=== PATIENT | male | born 1945 | race Two or more races ===

== ENCOUNTER 2022-06-14 14:26 | Inpatient (IN) | payer OTHER ==
[~2022-06-14] VITALS: Ht 182.9 cm; Wt 82.1 kg
--- NOTE | 2022-06-14 14:45 | NUR ---
[id number]IVATE HOME FOR AMS SINCE 399, LKWT "YESTERDAY". PLACED IN BED, NOT RESPONDING TO VERBAL AND PAINFUL STIMULI, BREATHING EVEN AND UNLABORED SATURATING AT 96%RA.
--- NOTE | 2022-06-14 14:58 | NUR ---
DR HAMMONDS AT BEDSIDE
--- NOTE | 2022-06-14 15:00 | NUR ---
attempted IV - multiple times failed called the nursing supervisor brew [facility] for PICC line
[2022-06-14 15:16] LABS: ABG BASE EXCESS -9.1 mmol/L; ABG PCO2 50.8 mmHg (35.0-45.0); ABG PH 7.188 (7.350-7.450); ABG PO2 81.2 mmHg (75.0-100.0); COHb 0.5 % (0.5-1.5); MetHb 0.3 % (0.0-1.5); O2Hb 91.3 % (94.0-97.0); SITE, ABG Right Radial; VENT MODE, BG 3LNC
[2022-06-14] MEDS ORDERED: MULT-447 PO (15:18)
[2022-06-14] MEDS ORDERED: METO50TA16 PO (15:18)
[2022-06-14] MEDS ORDERED: HYDR100T27 PO (15:18)
[2022-06-14] MEDS ORDERED: POLY17PO4 PO (15:18)
[2022-06-14] MEDS ORDERED: LOSA50TA39 PO (15:18)
[2022-06-14] MEDS ORDERED: ESCI10TA PO (15:18)
[2022-06-14] MEDS ORDERED: LAMO200T10 PO (15:18)
--- NOTE | 2022-06-14 15:28 | NUR ---
PATIENT TAKEN TO CT VIA STEVEN
--- NOTE | 2022-06-14 15:41 | NUR ---
rapid swab done and sent to lab
--- NOTE | 2022-06-14 16:07 | NUR ---
[facility] CALLED, AWAITING RETURN MESSAGE.
--- NOTE | 2022-06-14 16:35 | NUR ---
CENTRAL LINE RIGHT FEMORAL INSERTED BY DR HAMMONDS, BLOODS DRAWN AND URINE SAMPLE SENT TO LAB.
--- NOTE | 2022-06-14 16:50 | NUR ---
SWAB FOR COVID19 SENT TO LAB
[2022-06-14 17:04] LABS: BASOPHILS % (AUTO) 0.1 % (0.0-2.0); HEMATOCRIT 28 % (39-51); HEMOGLOBIN 9.2 g/dL (13.5-17.5); LYMPHOCYTES # (AUTO) 1.4 K/uL (0.8-4.8); LYMPHOCYTES % (AUTO) 9.9 % (20.0-44.0); MEAN CORPUSCULAR HGB CONC 33 g/dl (31.0-36.0); MEAN CORPUSCULAR VOLUME 94 fL (80-96); MONOCYTES # (AUTO) 1.5 K/uL (0.1-1.30); MONOCYTES % (AUTO) 10.2 % (2.0-12.0); NEUTROPHILS # (AUTO) 11.4 K/uL (1.8-8.9); NEUTROPHILS % (AUTO) 79.8 % (43.0-81.0); PLATELET COUNT (AUTO) 268 K/uL (150-450); WHITE BLOOD COUNT (AUTO) 14.3 K/uL (4.3-11.0)
[2022-06-14 17:18] LABS: SERUM AMMONIA 7 umol/L (11-32)
[2022-06-14 17:24] LABS: ALANINE AMINOTRANSFERASE 19 U/L (12-78); ALBUMIN 3.5 g/dL (3.4-5.0); ALKALINE PHOSPHATASE 105 U/L (46-116); ASPARTATE AMINOTRANSFERASE 42 U/L (15-37); BILIRUBIN,DIRECT 0.1 mg/dL (0.0-0.2); BILIRUBIN,TOTAL 0.4 mg/dL (0.2-1.0); CALCIUM, SERUM 7.1 mg/dL (8.5-10.1); CARBON DIOXIDE 23 mmol/L (21-32); CHLORIDE 93 mmol/L (98-107); GLUCOSE 95 mg/dL (74-106); SODIUM SERUM 138 mmol/L (136-145)
[2022-06-14 17:30] LABS: THYROID STIMULATING HORMONE 0.644 uIU/mL (0.358-3.74)
[2022-06-14 17:35] LABS: POTASSIUM 6.2 mmol/L (3.5-5.1)
--- NOTE | 2022-06-14 17:35 | NUR ---
BUN 82 , crea 10.4 , made aware
[2022-06-14 17:36] LABS: CREATININE 10.3 mg/dL (0.6-1.3); UREA NITROGEN, BLOOD 84 mg/dL (7-18)
--- NOTE | 2022-06-14 17:42 | NUR ---
CALLED [facility], DR KENNY MESSAGE LEFT TO COME TO ER
[2022-06-14 17:49] LABS: BILIRUBIN,URINE 1+ (NEGATIVE); COLOR,URINE YELLOW (YELLOW); LEUKOCYTE ESTERASE ,URINE NEGATIVE (NEGATIVE); NITRITE, URINE NEGATIVE (NEGATIVE); PROTEIN,URINE 2+ mg/dl (NEGATIVE); UGLUCOSE NEGATIVE (NEGATIVE); UROBILINOGEN,URINE 0.2 EU/dL (0.2)
[2022-06-14 17:57] LABS: BACTERIA,URINE None seen /HPF (None Seen); SQUAMOUS EPITHELIAL CELL,UR 0-2 /HPF (None Seen); WBC,URINE 0-2 /HPF (0-3)
[2022-06-14] MEDS ORDERED: DEXTROSE 50%-WATER 50 ML DISP.SYRIN IV ONE (18:00)
[2022-06-14] MEDS ORDERED: CALCIUM CHLORIDE 1,000 MG/10 ML DISP.SYRIN IV ONE (18:00)
[2022-06-14] MEDS ORDERED: INSULIN REGULAR, HUMAN 100 UNIT/ML 10 ML VIAL IV ONE (18:00)
[2022-06-14] MEDS ORDERED: SODIUM BICARBONATE SYR 50 MEQ/50 ML DISP.SYRIN IV ONE (18:00)
[2022-06-14] MEDS ORDERED: SODIUM BICARBONATE SYR 50 MEQ/50 ML DISP.SYRIN ONE (18:04)
[2022-06-14] MEDS ORDERED: DEXTROSE 50%-WATER 50 ML DISP.SYRIN ONE (18:05)
[2022-06-14] MEDS ORDERED: INSULIN REGULAR, HUMAN 100 UNIT/ML 10 ML VIAL ONE (18:05)
[2022-06-14] MEDS ORDERED: CALCIUM CHLORIDE 1,000 MG/10 ML DISP.SYRIN ONE (18:05)
[2022-06-14] MEDS ORDERED: SODIUM POLYSTYRENE SULFONATE 15 G/60 ML BOTTLE RC ONE (18:30)
[2022-06-14] MEDS ORDERED: NALOXONE PREFILLED SYRINGE 2 MG/2 ML SYRINGE ONE (19:23)
[2022-06-14] MEDS ORDERED: NALOXONE PREFILLED SYRINGE 2 MG/2 ML SYRINGE IV ONE (20:00)
[2022-06-14] MEDS ORDERED: ACETAMINOPHEN 325 MG TABLET PO PRN (20:30)
[2022-06-14] MEDS ORDERED: ONDANSETRON HCL/PF 4 MG/2 ML VIAL IVP PRN (20:30)
[2022-06-14] MEDS ORDERED: SODIUM POLYSTYRENE SULFONATE 15 G/60 ML BOTTLE ONE (20:48)
--- NOTE | 2022-06-14 21:42 | NUR ---
REPORT GIVEN TO NAIF CONKLIN RN FOR KIMI
[2022-06-14 21:55] LABS: CALCIUM, SERUM 7.9 mg/dL (8.5-10.1); CARBON DIOXIDE 21 mmol/L (21-32); CHLORIDE 94 mmol/L (98-107); GLUCOSE 84 mg/dL (74-106); POTASSIUM 4.7 mmol/L (3.5-5.1); SODIUM SERUM 140 mmol/L (136-145)
[2022-06-14 21:59] LABS: CREATININE 10.5 mg/dL (0.6-1.3); UREA NITROGEN, BLOOD 86 mg/dL (7-18)
[2022-06-14] MEDS: HEPARIN SODIUM, PORCINE 5000 UNITS/1 ML VIAL SQ SCH (22:00)
[2022-06-14] MEDS ORDERED: CEFEPIME 1 GM in IV D5W 50 ML IV ONE (22:00)
--- NOTE | 2022-06-14 22:00 | NUR ---
KATERIN RN NOTE ADMITTED 76 YEARS OLD MALE FOR ER WITH THE DX OF HYPERKALEMIA, AMS, ACUTE RESP FAILURE BY JOESPH GRAVES. PT IS A/O X 1 CONFUSED. NO SOB NO DISTRESS OR DISCOMFORT NOTED. DENIES PAIN. ON O2 2L VIA N/C O2 SAT 97%. PT HAS RT FEMORAL CENTER LINE TRIPLE LUMEN CATH INTACT AND PATENT. ALSO F/C INTACT AND PATENT DRAINING URINE WITH HEMATURIA. PINKISH TO REDDISH IN COLOR. WAITING HD NURSE. K IS 6.2. BUILDING CODE INSPECTOR AWARE. SKIN INTACT. ADMITTING ORDERS CHECKED. SIDE RAILS UP X 2 AND CALL LIGHT WITHIN REACH. CONTINUE TO MONITOR HIM.
--- NOTE | 2022-06-14 23:15 | NUR ---
KATERIN RN NOTE HD NURSE ARRIVED. AND STARTED HD. PT TOLERATING WELL. CONTINUE TO MONITOR HIM. WILL ADMINISTER IV ATB AFTER THE HD.
[2022-06-15] VITALS: BP 140/75
--- NOTE | 2022-06-15 02:20 | NUR ---
KATERIN RN NOTE HD FINISHED. 2L OUTPUT. VSS. CONTINUE TO MONITOR PT IS ASLEEP, NO DISTRESS OR DISCOMFORT NOTED.
[2022-06-15] MEDS ORDERED: CEFEPIME 1 GM VIAL ONE (02:21)
[2022-06-15 04:00] VITALS: BP 156/78
[2022-06-15 05:48] LABS: BASOPHILS % (AUTO) 0.1 % (0.0-2.0); EOSINOPHILS % (AUTO) 0.2 % (0.0-6.0); HEMATOCRIT 27 % (39-51); HEMOGLOBIN 9.1 g/dL (13.5-17.5); LYMPHOCYTES # (AUTO) 1.8 K/uL (0.8-4.8); LYMPHOCYTES % (AUTO) 12.4 % (20.0-44.0); MEAN CORPUSCULAR HGB CONC 33 g/dl (31.0-36.0); MEAN CORPUSCULAR VOLUME 94 fL (80-96); MONOCYTES # (AUTO) 1.6 K/uL (0.1-1.30); MONOCYTES % (AUTO) 11.3 % (2.0-12.0); PLATELET COUNT (AUTO) 247 K/uL (150-450); RED BLOOD CELL COUNT(AUTO) 2.91 MIL/uL (4.5-6.0); WHITE BLOOD COUNT (AUTO) 14.5 K/uL (4.3-11.0)
[2022-06-15 06:06] LABS: CHOLESTEROL 228 mg/dL (<200); HDL CHOLESTEROL 49 mg/dL (40-60); LDL 150 mg/dL (0-99); TRIGLYCERIDES 138 mg/dL (30-150)
[2022-06-15 06:13] LABS: CALCIUM, SERUM 8.2 mg/dL (8.5-10.1); CARBON DIOXIDE 23 mmol/L (21-32); CHLORIDE 96 mmol/L (98-107); GLUCOSE 76 mg/dL (74-106); MAGNESIUM 2.9 mg/dL (1.8-2.4); POTASSIUM 4.4 mmol/L (3.5-5.1); SODIUM SERUM 139 mmol/L (136-145); UREA NITROGEN, BLOOD 62 mg/dL (7-18)
[2022-06-15 06:20] LABS: CREATININE 7.8 mg/dL (0.6-1.3); PHOSPHORUS 8.9 mg/dL (2.5-4.9)
--- NOTE | 2022-06-15 06:52 | NUR ---
KATERIN RN NOTE PT IN BED ASLEEP, NO DISTRESS OR DISCOMFORT NOTED. DENIES PAIN. IVF INFUSING WELL, NO S/S OF INFILTRATION NOTED. KEPT HIM DRY AND CLEAN. WILL ENDORSE TO DAY SHIFT NURSE FOR CONTINUE TO CARE.
--- NOTE | 2022-06-15 07:30 | NUR ---
TD RN AM NOTE PT IN BED, AOX1, LETHARGIC, CONFUSED, ON 2L O2 NASAL CANULA, NO SOB, RESPIRATION UNLABORED, O2 SAT 95%, SR HR 78 ON MONITOR, NO SIGNS OF PAIN/ GRIMACING AT THIS TIME, HALLEY AV SHUNT, THRILL PRESENT, WITH RIGHT FEMORAL TLC, FLUSHES WELL, SITE CLEAR. SPRING CATH IN PLACE, NOTED WITH PINKISH TO RED TINGE URINE. NO SKIN ISSUES. RENAL STD DIET, ASSISTED, SAFETY MEASURES IN PLACE, BED LOW LOCKED, SR UP X 2, CALL LIGHT WITHIN REACH. WILL CONTINUE TO MONITOR.
[2022-06-15 08:00] VITALS: BP 139/75
[2022-06-15] MEDS ORDERED: hydrALAZINE HCL 10 MG TABLET PO SCH (09:00)
[2022-06-15] MEDS: HEPARIN SODIUM, PORCINE 5000 UNITS/1 ML VIAL SQ SCH ×2 (09:00→21:39)
[2022-06-15] MEDS: LamoTRIgine 100 MG TABLET PO SCH (09:20)
[2022-06-15] MEDS: MULTIVITAMINS,THERAGRAN 1 UDTAB TABLET PO SCH (09:21)
[2022-06-15] MEDS: ESCITALOPRAM OXALATE (10 MG) 10 MG TABLET PO SCH (09:21)
[2022-06-15] MEDS: LOSARTAN POTASSIUM 50 MG TABLET PO SCH (09:22)
[2022-06-15] MEDS: METOPROLOL TARTRATE 50 MG TABLET PO SCH ×2 (09:23→17:00)
[2022-06-15] MEDS: POLYETHYLENE GLYCOL 3350 17 GM POWD.PACK PO SCH (09:23)
--- NOTE | 2022-06-15 09:30 | NUR ---
RN NOTES DUE MEDS GIVEN EXCEPT HEPARIN. HELD FOR NOW MD NOTIFIED ABOUT BLOOD TINGE URINE.
[2022-06-15] MEDS: hydrALAZINE HCL 50 MG TABLET PO SCH ×3 (09:44→17:00)
[2022-06-15 10:05] LABS: ABG BASE EXCESS -2.8 mmol/L; ABG PCO2 48.9 mmHg (35.0-45.0); ABG PH 7.303 (7.350-7.450); COHb 0.3 % (0.5-1.5); MetHb 0.3 % (0.0-1.5); SITE, ABG Right Radial; VENT MODE, BG 4L NC
--- NOTE | 2022-06-15 10:58 | NUR ---
RN NOTES DR. KEISHA BOYCE AT BEDSIDE. ORDERED FOR MIDLINE AND SWALLOW EVAL
--- NOTE | 2022-06-15 11:00 | NUR ---
RN NOTES RESUME HEPARIN PER DR. KEISHA BOYCE
[2022-06-15 12:00] VITALS: BP 132/75
[2022-06-15] MEDS: CALCIUM ACETATE 667 MG CAP/TAB PO SCH ×2 (12:35→18:07)
--- NOTE | 2022-06-15 15:45 | NUR ---
RN NOTES HD NURSE AT BEDSIDE
[2022-06-15 16:00] VITALS: BP 185/75
--- NOTE | 2022-06-15 16:03 | NUR ---
RN NOTES KEISHA BOYCE DNP NOTIFIED ABOUT PT'S BLOOD PRESSURE 214/104. NO NEW ORDERS.
--- NOTE | 2022-06-15 17:00 | NUR ---
RN NOTES DR. GARNER NOTIFIED PT'S BP 230/112. ONGOING HD NEW ORDER TO GIVE CLONIDINE 0.2MG X 1
[2022-06-15] MEDS ORDERED: CLONIDINE HCL 0.1 MG TABLET PO ONE (17:30)
--- NOTE | 2022-06-15 18:30 | NUR ---
WIRE LOOP MACHINE OPERATOR AM NOTE PT IN BED, AOX1, CONFUSED, ON 2L O2 NASAL CANULA, NO SOB, RESPIRATION UNLABORED, O2 SAT 92%, HR 74, NO SIGNS OF PAIN/ GRIMACING AT THIS TIME, HALLEY AV SHUNT, THRILL PRESENT, WITH RIGHT FEMORAL TLC, FLUSHES WELL, SITE CLEAR. SPRING CATH IN PLACE, NOTED WITH PINKISH TO RED TINGE URINE. NO SKIN ISSUES. ASSISTED, SAFETY MEASURES IN PLACE, BED LOW LOCKED, SR UP X 2, CALL LIGHT WITHIN REACH. WILL ENDORSE TO HOUSING COURT JUDGE NO BP OR BLOOD DRAWS LEFT ARM
--- NOTE | 2022-06-15 19:50 | NUR ---
PAYROLL AND BENEFITS MANAGER OPENING NOTE PATIENT SLEEPING IN BED, EASILY AWAKENED, PT ALERT TO NAME ONLY. PATIENT ON 2 LPM OF O2 VIA NASAL CANNULA, NO S/S OF DISTRESS OR SOB NOTED, BREATHING EVEN AND UNLABORED. PATIENT ON EXTERNAL BURRITO MAKER READING SINUS RHYTHM WITH OCCASIONAL PVC'S, HR: 71. IV ACCESS ON JOHN MIDLINE INTACT AND SALINE LOCKED. HALLEY AV SHUNT NOTED, DRESSING CLEAN, DRY AND INTACT. SPRING CATHETER IN PLACE AND DRAINING LATASHA/BLOOD TINGED URINE. SAFETY MEASURES IN PLACE: CALL LIGHT WITHIN REACH, SIDE RAILS UP X 3, BED LOCKED IN LOWEST POSITION, HOB ELEVATED, BED ALARM ON. WILL CONTINUE TO MONITOR PATIENT
[2022-06-15 20:00] VITALS: BP 146/87
--- NOTE | 2022-06-15 20:15 | NUR ---
CREDIT CLERK NOTE PATIENT O2 SATURATION 91% ON 2 LPM OF OXYGEN, INCREASED TO 3 LPM. WILL CONTINUE TO MONITOR
--- NOTE | 2022-06-15 21:45 | NUR ---
OPERATIONS TECH NOTE SCHEDULED HEPARIN 5,000 UNITS SQ GIVEN ORDERED, HGB: 9.1, HCT: 27, PLATELETS 247. PATIENT HAS SOME HEMATURIA IN SPRING CATHETER, BUT PER DAYSHIFT RN RESUME HEPARIN PER DR. KEISHA BOYCE
[2022-06-15] MEDS: CEFEPIME 1 GM in IV D5W 50 ML IV SCH (22:39)
[2022-06-16] VITALS (7 sets, daily range): BP systolic 98–195; BP diastolic 72–106
--- NOTE | 2022-06-16 00:35 | NUR ---
SUB PRIOR NOTE PATIENT NOTED WITH BP 178/88, HR: 79, PATIENT HAS NO PRN BP MEDS. CONTACTED PRODUCTION INTERNSHIP MD POWER CARUSO WITH ORDER FOR HYDRALAZINE 10 MG IVP Q4H PRN FOR SBP > 160. ORDER VERIFIED AND CARRIED OUT. WILL CONTINUE TO MONITOR
[2022-06-16] MEDS: hydrALAZINE HCL IV 20 MG VIAL IV PRN ×2 (01:11→15:54)
--- NOTE | 2022-06-16 06:24 | NUR ---
HOOP COILER CLOSING NOTE PATIENT SLEEPING IN BED, EASILY AWAKENED, PT ALERT TO NAME ONLY, CONFUSED. PATIENT ON 3 LPM OF O2 VIA NASAL CANNULA, NO S/S OF DISTRESS OR SOB NOTED, BREATHING EVEN AND UNLABORED. PATIENT ON EXTERNAL PET FEEDER READING SINUS RHYTHM WITH OCCASIONAL PVC'S, PT ALSO ON/OFF BIGEMINY, HR: 77. IV ACCESS ON JOHN MIDLINE INTACT AND SALINE LOCKED. HALLEY AV SHUNT NOTED, DRESSING CLEAN, DRY AND INTACT. RIGHT FEMORAL TLC INTACT, DRESSING CLEAN, DRY AND INTACT. SPRING CATHETER IN PLACE AND DRAINING LATASHA/BLOOD TINGED URINE, OUTPUT OF 100 ML . MEDICATIONS GIVEN ORDERED, PT NEEDS MET THROUGHOUT SHIFT. SAFETY MEASURES IN PLACE: CALL LIGHT WITHIN REACH, SIDE RAILS UP X 3, BED LOCKED IN LOWEST POSITION, HOB ELEVATED, BED ALARM ON. WILL ENDORSE TO DAYSHIFT RN FOR CONTINUITY OF CARE
--- NOTE | 2022-06-16 07:30 | NUR ---
RN Receiving Report Patient AOx4 able to express her concerns, delayed speech. Patient states no issues, no pain. Made are of plan of care and the need for dialysis today, patient verbalized agreement. Patient with no signs of distress or discomfort, no sign of respiratory distress, no sign of IV infiltration. All safety precautions taken, call light and table within reach, bed at lowest position. Will continue to monitor throughout shift.
[2022-06-16] MEDS: MULTIVITAMINS,THERAGRAN 1 UDTAB TABLET PO SCH (08:13)
[2022-06-16] MEDS: CALCIUM ACETATE 667 MG CAP/TAB PO SCH ×3 (08:13→17:53)
[2022-06-16] MEDS: ESCITALOPRAM OXALATE (10 MG) 10 MG TABLET PO SCH (08:15)
[2022-06-16] MEDS: LOSARTAN POTASSIUM 50 MG TABLET PO SCH (08:16)
[2022-06-16] MEDS: POLYETHYLENE GLYCOL 3350 17 GM POWD.PACK PO SCH (08:17)
[2022-06-16] MEDS: hydrALAZINE HCL 50 MG TABLET PO SCH ×3 (08:17→17:54)
[2022-06-16] MEDS: METOPROLOL TARTRATE 50 MG TABLET PO SCH ×2 (08:17→17:54)
[2022-06-16] MEDS: LamoTRIgine 100 MG TABLET PO SCH (08:18)
[2022-06-16] MEDS: HEPARIN SODIUM, PORCINE 5000 UNITS/1 ML VIAL SQ SCH ×2 (08:20→21:36)
[2022-06-16 14:23] LABS: ABG OXYGEN SATURATION 94.8 % (92.0-98.5); ABG PCO2 40.2 mmHg (35.0-45.0); ABG PH 7.375 (7.350-7.450); ABG PO2 97.3 mmHg (75.0-100.0); AaDO2 112.8 mmHg; COHb 0.3 % (0.5-1.5); MetHb 0.2 % (0.0-1.5); O2Hb 94.3 % (94.0-97.0); SITE, ABG Right Radial
[2022-06-16 14:44] LABS: BASOPHILS % (AUTO) 0.3 % (0.0-2.0); HEMATOCRIT 33 % (39-51); HEMOGLOBIN 10.7 g/dL (13.5-17.5); LYMPHOCYTES # (AUTO) 1.4 K/uL (0.8-4.8); LYMPHOCYTES % (AUTO) 9.3 % (20.0-44.0); MEAN CORPUSCULAR HGB CONC 32 g/dl (31.0-36.0); MEAN CORPUSCULAR VOLUME 95 fL (80-96); MONOCYTES # (AUTO) 1.6 K/uL (0.1-1.30); MONOCYTES % (AUTO) 11.2 % (2.0-12.0); NEUTROPHILS # (AUTO) 11.6 K/uL (1.8-8.9); NEUTROPHILS % (AUTO) 79.2 % (43.0-81.0); PLATELET COUNT (AUTO) 249 K/uL (150-450); RED BLOOD CELL COUNT(AUTO) 3.49 MIL/uL (4.5-6.0); WHITE BLOOD COUNT (AUTO) 14.7 K/uL (4.3-11.0)
[2022-06-16 15:01] LABS: CALCIUM, SERUM 9.7 mg/dL (8.5-10.1); CARBON DIOXIDE 24 mmol/L (21-32); CHLORIDE 105 mmol/L (98-107); CREATININE 4.8 mg/dL (0.6-1.3); GLUCOSE 129 mg/dL (74-106); SODIUM SERUM 145 mmol/L (136-145); UREA NITROGEN, BLOOD 34 mg/dL (7-18)
--- NOTE | 2022-06-16 15:30 | NUR ---
[place] [facility] from [place] , called requesting clinical information. He will call back once he is able to secure a bed for pts transfer.
--- NOTE | 2022-06-16 18:04 | NUR ---
Closing Report Patient AOx1-2 not able to express his concerns. Patient refused care and would have to insist and educate to provide services with patients consent. Patient made aware of pending transferred to [place], verbalized agreement. All safety precautions taken, call light and table within reach, bed at lowest position. Medications administered as prescribed, care provided as needed. Will endorse to night nurse for continuity of care.
--- NOTE | 2022-06-16 19:30 | NUR ---
RN OPENING NOTE PATIENT IN BED, EYES CLOSED. PATIENT IS EASILY AWAKENED WITH VERBAL AND TOUCH STIMULI. PATIENT NOTED TO HAVE DELAYED AND MILDLY SLURRED SPEECH. A/O X 1-2, NEEDS REORIENTATION. PATIENT ON 3 LPM VIA NC 99% O2 SAT, WILL TITRATE 02 PRN. HE HAS A JOHN MIDLINE 18 G SALINE LOCKED AT THIS TIME AND A HALLEY AV SHUNT BRUIT AND THRILL PRESENT. SPRING CATHETER IN PLACE WITH YELLOW URINE DRAINING VIA GRAVITY. PATIENT DOES NOT SEEM TO BE IN PAIN VIA FLACC. SAFETY MEASURES IN PLACE: BED LOCKED AND IN LOWEST POSITION, CALL LIGHT WITHIN REACH, SIDE RAILS UP. WILL MONITOR PATIENT CLOSELY.
--- NOTE | 2022-06-16 23:00 | NUR ---
RN NOTE NOTIFIED BY [facility] THAT PATIENT WILL BE GOING TO ROOM 5107 A AT [facility]. PER [facility], TRANSPORTATION IS SCHEDULED AT 12 MIDNIGHT WITH [facility]. CONFIRMED ALL PAPER WORK IS COMPLETED. CHARGE NURSE MINERVA MCNAIR.
--- NOTE | 2022-06-16 23:15 | NUR ---
SPOKE WITH [facility] TO GIVE UPDATED VITAL SIGNS: BP 144/82, HR 84, TEMP 97.8, RESP 18, O2 SAT 2 LPM VIA NC.
[2022-06-16] MEDS: CEFEPIME 1 GM in IV D5W 50 ML IV SCH (23:20)
[2022-06-17] MEDS: hydrALAZINE HCL IV 20 MG VIAL IV PRN (00:02)
[2022-06-17 00:07] VITALS: BP 190/91
--- NOTE | 2022-06-17 00:12 | NUR ---
RN DC NOTE PATIENT STABLE UPON TRANSFER. BP 190/91, HR 83 ADMINISTERED HYDRALAZINE 10 MG IVP FOR HIGH BP. REPORT GIVEN TO [facility] K[facility]STAN WALTERS. PATIENT GOING TO ROOM 5107 A. EXIT CARE PROVIDED. [facility] TRANSFER CHECKLIST COMPLETED. CD OF IMAGING IN THE EXIT PACKET. JOHN MIDLINE 18G PATENT AND INTACT AND PATIENT LEFT WITH SPRING CATHETER IN PLACE DRAINING YELLOW URINE VIA GRAVITY. PATIENT REMAINED ON 2 LPM VIA NC, 99%,. NO SOB NOTED UPON DC.
== END 2022-06-17 01:49 | disposition short-term general hospital (02) | DRG 917 ==
LOC: ER 14:37 → MEDSG1 21:10 → TELE-TD 21:19 → TELE1 22:14 → TELE-TD 22:17 → TELE1 06-15 09:31
PROVIDERS: ADMIT Nurse Practitioner Acute Care; ATTEND Nurse Practitioner Acute Care
PROC: 5A1D70Z Performance of Urinary Filtration, Intermittent, Less than 6 Hours Per Day (ICD-10-PCS; 2022-06-14)
PROC: 05H933Z Insertion of Infusion Device into Right Brachial Vein, Percutaneous Approach (ICD-10-PCS; principal; 2022-06-15)
DX: T40.601A Poisoning by unspecified narcotics, accidental (unintentional), initial encounter (principal); G92.8 Other toxic encephalopathy; N18.6 End stage renal disease; J69.0 Pneumonitis due to inhalation of food and vomit; J96.01 Acute respiratory failure with hypoxia; I12.0 Hypertensive chronic kidney disease with stage 5 chronic kidney disease or end stage renal disease; Y92.009 Unspecified place in unspecified non-institutional (private) residence as the place of occurrence of the external cause; Z99.2 Dependence on renal dialysis; E87.5 Hyperkalemia; E83.39 Other disorders of phosphorus metabolism; D63.1 Anemia in chronic kidney disease; E83.89 Other disorders of mineral metabolism; K76.9 Liver disease, unspecified; Z20.822 Contact with and (suspected) exposure to COVID-19
CPT/HCPCS: 36410; 36415; 36600; 70450-TC; 71045-TC; 80048-TC; 80061-TC; 80076-TC; 81001; 82140-TC; 82803-TC; 82962-TC; 83605-TC; 83735-TC; 84100-TC; 84443-TC; 84484-TC; 85025-TC; 85730-TC; 86706; 87040-TC; 87081-TC; 87340; 90935-TC; 92526; 92611-TC; A6253; A6403; C9803; G0378; J0360; J0692; J1644; J1815; J2310; J3490; J7030; J7050; J7060